=== PATIENT | female | born 1945 | race Hispanic/Latino ===

== ENCOUNTER 2018-06-06 04:20 | Emergency (ER) | payer MEDICARE, SELFPAY ==
[2018-06-06 05:01] LABS: Bilirubin Negative (Negative); Blood, Urine Trace (Negative); Clarity CLEAR (Clear); Glucose, Urine (Dipstick) 250 mg/dL (Negative); Leukocyte Small (Negative); Nitrite Negative (Negative); Protein, Urine (Dipstick) 100 mg/dL (Neg-Trace); Specific Gravity, Urine 1.009 (1.002-1.036); Urobilinogen 0.2 mg/dL (0.2-1.0); pH, Urine 7.5 (5.0-9.0)
[2018-06-06 05:04] LABS: Bacteria/HPF None Seen HPF (None Seen); Hyaline Casts/LPF 0-3 HYALINE CAST LPF (0-3 Hyaline); Pathc Cast-AUWi Flag 0.29 (0-2.49); RBC/HPF 0-3 HPF (0-3); Squamous Epithelial 0-3 HPF (0-3)
[2018-06-06 05:32] LABS: #Eosinphils 0.2 thou/uL (0.0-0.7); #Lymphocytes 1.4 thou/uL (1.20-3.40); #Monocytes 0.3 thou/uL (0.11-0.59); #Neutrophils 4.5 thou/uL (1.40-6.50); %Basophils 0.6 % (0.0-1.0); %Eosinophils 2.4 % (0.0-10.0); %Lymphocytes 22.1 % (21.0-51.0); %Monocytes 4.7 % (0.0-10.0); %Neutrophils 70.1 % (42.0-75.0); Hemoglobin 10.8 g/dL (12.0-16.0); Mean Corpuscular HGB CONC 33.7 g/dL (32.0-36.0); Mean Corpuscular Hemoglobin 29.1 pg (27.0-31.0); Mean Corpuscular Volume 86.4 fL (78.0-98.0); Platelet Count 230 thou/uL (130-400); RBC Distribution Width 11.8 % (11.5-14.5); Red Blood Cell (RBC) Count 3.72 mill/uL (4.20-5.40); White Blood Cell (WBC) Count 6.4 thou/uL (4.8-10.8)
[2018-06-06 05:52] LABS: ALT (SGPT) 17 U/L (8-55); AST (SGOT) 18 U/L (5-34); Albumin 4.2 g/dL (3.4-4.8); Alkaline Phosphatase 93 U/L (40-150); Anion Gap 14 mmol/L (10-20); BUN (Urea Nitrogen) 21 mg/dL (9.8-20.1); Bilirubin, Total 0.3 mg/dL (0.2-1.2); Calc. Creatinine Clearance 0 mL/min (70-130); Calcium 9.8 mg/dL (7.8-10.44); Carbon Dioxide 26 mmol/L (23-31); Chloride 102 mmol/L (98-107); Estimated GFR-MDRD 57; Globulin 3.6 g/dL (2.4-3.5); Glucose 222 mg/dL (83-110); Potassium 3.8 mmol/L (3.5-5.1); Protein, Total 7.8 g/dL (6.0-8.3); Sodium 138 mmol/L (136-145)
[2018-06-06] MEDS ORDERED: Meclizine HCl 25 MG TAB ONE (06:21)
[2018-06-06] MEDS ORDERED: hydrALAZINE 20 MG/ML VIAL ONE (06:50)
--- NOTE | 2018-06-06 08:59 | CT ---
PRELIMINARY REPORT/[facility]/EMERGENTY AFTER-HOURS PROCEDURE CT Head Without Contrast EXAM DATE/TIME: 06/06/2018 6:26 AM CLINICAL HISTORY: 73 years old, female; Signs and symptoms; Dizziness; Patient HX: 73f presents for evaluation of dizzi ness/lightheadedness, onset 1600 hours yesterday. Patient recalls checking her blood pressure later i n the evening at 2330 and noticed it was higher than normal. Patient then took her HTN meds and went to sleep. She was then woken from sleep with headache and room spinning when she opened her eyes. Sherrill shaw tried to relax, but her pressure climbed higher. TECHNIQUE: Axial computed tomography images of the head/brain without contrast. COMPARISON: No relevant prior studies available. FINDINGS: Brain: Normal. No hemorrhage. No significant white matter disease. No edema. Ventricles: Normal. No ventriculomegaly. Bones/joints: Normal. No acute fracture. Sinuses: Normal as visualized. No acute sinusitis. Mastoid air cells: Normal as visualized. No mastoid effusion. Soft tissues: Normal. IMPRESSION: No acute intracranial abnormality. Thank you for allowing us to participate in the care of your patient. Dictated and Authenticated by: Ace Estrella MD 06/06/2018 7:01 AM Central Time ([place] & [place]) FINAL REPORT EMERGENCY AFTER HOURS CT BRAIN: Date: 06/06/18 IMPRESSION: I agree with the preliminary interpretation given by Gloria. POS: [facility]
== END 2018-06-06 07:14 | disposition home or self-care (01) ==
LOC: ERS 04:20
DX: R42 Dizziness and giddiness (principal); I10 Essential (primary) hypertension; E11.9 Type 2 diabetes mellitus without complications; E78.00 Pure hypercholesterolemia, unspecified; F41.9 Anxiety disorder, unspecified; Z79.899 Other long term (current) drug therapy; Z79.4 Long term (current) use of insulin
CPT/HCPCS: 36415; 70450; 80053; 81003; 81015; 85025; 93005; 96374; J0360

== ENCOUNTER 2019-07-23 00:51 | Observation (INO) | payer MEDICARE ==
[2019-07-23] MEDS ORDERED: Aspirin Chewable 81 MG TAB ONE (01:17)
[2019-07-23 01:20] LABS: #Basophils 0.1 thou/uL (0.0-0.2); #Eosinphils 0.2 thou/uL (0.0-0.7); #Monocytes 0.4 thou/uL (0.11-0.59); #Neutrophils 4.2 thou/uL (1.40-6.50); %Basophils 1.4 % (0.0-1.0); %Eosinophils 2.9 % (0.0-10.0); %Lymphocytes 28.9 % (21.0-51.0); %Monocytes 6.2 % (0.0-10.0); %Neutrophils 60.6 % (42.0-75.0); Hemoglobin 10.3 g/dL (12.0-16.0); Mean Corpuscular HGB CONC 34.2 g/dL (32.0-36.0); Mean Corpuscular Hemoglobin 29.8 pg (27.0-31.0); Mean Corpuscular Volume 87.1 fL (78.0-98.0); Platelet Count 205 thou/uL (130-400); RBC Distribution Width 11.8 % (11.5-14.5); Red Blood Cell (RBC) Count 3.45 mill/uL (4.20-5.40); White Blood Cell (WBC) Count 6.9 thou/uL (4.8-10.8)
[2019-07-23 01:42] LABS: ALT (SGPT) 13 U/L (8-55); AST (SGOT) 17 U/L (5-34); Albumin 3.8 g/dL (3.4-4.8); Alkaline Phosphatase 84 U/L (40-110); Anion Gap 13 mmol/L (10-20); BUN (Urea Nitrogen) 23 mg/dL (9.8-20.1); Bilirubin, Total 0.2 mg/dL (0.2-1.2); Calc. Creatinine Clearance 0 mL/min (70-130); Calcium 9.1 mg/dL (7.8-10.44); Carbon Dioxide 24 mmol/L (23-31); Chloride 106 mmol/L (98-107); Estimated GFR-MDRD 57; Glucose 162 mg/dL (83-110); Lipase 55 U/L (8-78); Potassium 3.8 mmol/L (3.5-5.1); Protein, Total 6.8 g/dL (6.0-8.3); Sodium 139 mmol/L (136-145)
[2019-07-23] MEDS ORDERED: HumaLOG 300 UNITS/3 ML VIAL SC PRN ×3 (03:10→10:43)
[2019-07-23 03:39] LABS: #Eosinphils 0.1 thou/uL (0.0-0.7); #Lymphocytes 1.7 thou/uL (1.20-3.40); #Monocytes 0.4 thou/uL (0.11-0.59); #Neutrophils 4.3 thou/uL (1.40-6.50); %Basophils 0.4 % (0.0-1.0); %Eosinophils 1.9 % (0.0-10.0); %Lymphocytes 25.8 % (21.0-51.0); %Monocytes 5.5 % (0.0-10.0); %Neutrophils 66.4 % (42.0-75.0); Mean Corpuscular HGB CONC 34.8 g/dL (32.0-36.0); Mean Corpuscular Hemoglobin 30.3 pg (27.0-31.0); Mean Corpuscular Volume 87.1 fL (78.0-98.0); Mean Platelet Volume 8.2 fL (7.4-10.4); Platelet Count 195 thou/uL (130-400); RBC Distribution Width 11.7 % (11.5-14.5); Red Blood Cell (RBC) Count 3.29 mill/uL (4.20-5.40); White Blood Cell (WBC) Count 6.5 thou/uL (4.8-10.8)
[2019-07-23 03:59] LABS: Anion Gap 12 mmol/L (10-20); BUN (Urea Nitrogen) 22 mg/dL (9.8-20.1); Calc. Creatinine Clearance 0 mL/min (70-130); Carbon Dioxide 25 mmol/L (23-31); Chloride 106 mmol/L (98-107); Estimated GFR-MDRD 58; Glucose 180 mg/dL (83-110); Potassium 4.1 mmol/L (3.5-5.1); Sodium 139 mmol/L (136-145)
[2019-07-23] MEDS ORDERED: Ondansetron PF 4 MG/2 ML Vial IVP PRN (04:43)
[2019-07-23] MEDS ORDERED: Acetaminophen 325 MG TAB PO PRN (04:43)
[2019-07-23] MEDS ORDERED: Ondansetron ODT 4 MG TAB SL PRN (04:43)
[2019-07-23 04:44] LABS: Troponin I 0.021 ng/mL (< 0.028)
[2019-07-23 05:15] VITALS: BMI 24.5
[2019-07-23 07:51] LABS: Troponin I 0.031 ng/mL (< 0.028)
[2019-07-23] MEDS ORDERED: cloNIDine 0.1 MG TAB PO PRN ×2 (07:53→10:39)
--- NOTE | 2019-07-23 08:31 | RAD ---
PORTABLE CHEST 1 VIEW: DATE: 07/23/2019. TIME: 12:46 AM. HISTORY: Chest pain. FINDINGS: Comparison is made with the exam of 01/01/2012. The heart size is normal. The aorta is tortuous. Th ere is evidence of old granulomatous disease. No focal areas of consolidation, pneumothoraces, or pl eural effusions are seen. There are degenerative changes in the spine. IMPRESSION: No acute process. POS: [facility]
[2019-07-23] MEDS ORDERED: Hydrochlorothiazide 25 MG TAB PO SCH (09:00)
[2019-07-23] MEDS ORDERED: Ondansetron ODT 4 MG TAB PO PRN (10:40)
[2019-07-23] MEDS ORDERED: Dextrose 5% in Water 1,000 ML IV PRN (10:43)
[2019-07-23] MEDS ORDERED: Dextrose 50% Abboject 50 ML SYRINGE SLOW IVP PRN (10:43)
[2019-07-23] MEDS ORDERED: ADENOSINE 60 MG/20 ML VIAL ONE (13:07)
[2019-07-23 16:41] VITALS: BP 142/65; TEMP 98.4
--- NOTE | 2019-07-23 16:42 | NM ---
EXAM: CARDIAC SPECT HISTORY: Chest pain, hypertension, diabetes, dyslipidemia TECHNIQUE: A myocardial perfusion scan was performed using the single isotope 1 day protocol with adela hnetium 99m sestamibi. [11 mCi] was injected intravenously for the rest exam followed by 28 mCifor the stress study. Pharmacologic stress with adenosine was monitored and interpreted by Dr. Bucio FINDINGS: Homogeneous tracer distribution is seen in the myocardial segments on stress and rest image s without fixed or reversible defects. Gated SPECT LVEF: 78% Wall motion exam: Normal IMPRESSION: Normal myocardial perfusion scan
[2019-07-23] MEDS ORDERED: Lisinopril 20 MG TAB PO SCH (21:00)
[2019-07-23] MEDS ORDERED: Simvastatin 5 MG TAB PO SCH (21:00)
[2019-07-23] MEDS ORDERED: INSULIN DETEMIR 7 UNIT SQ SCH (21:00)
[2019-07-23] MEDS ORDERED: Insulin Glargine 7 UNITS in Pre-Filled Syringe 1 EACH SC SCH (21:00)
--- NOTE | 2019-07-23 22:35 | HP ---
PRESENTING COMPLAINT: Chest pain. HISTORY OF PRESENT ILLNESS: The patient with a past medical history of diabetes mellitus, hypertension, hyperlipidemia, presented with chest pain and high blood pressure readings. As per the patient at 11:30 p.m. last night, she check her blood pressure, it was high, also started feeling retrosternal chest pain, off and on, lasting for a few seconds with the nitro did help with the pain and the patient's pain resolved. Currently, the patient denies any chest pain or shortness of breath. As per the patient, the pain was also feeling in her left shoulder area. Denies any shortness of breath or palpitation. Complains of mild sweating. Denies headache or dizziness. Denies nausea, vomiting, diarrhea, or constipation. The patient had minimal positive troponin from baseline 0.010, 0.021, 0.031, being admitted for further evaluation. SYSTEMIC REVIEW: As mentioned above in the HPI. All other systems are negative. PAST MEDICAL HISTORY: As mentioned above in the HPI. PAST SURGICAL HISTORY: History of left mastectomy for breast cancer. History of hysterectomy. SOCIAL HISTORY: Denies smoking, alcohol abuse, drug abuse. FAMILY HISTORY: Coronary artery disease and cancer. ALLERGIES: NKDA. MEDICATIONS: 1. Insulin glargine. 2. Metoprolol. 3. Hydrochlorothiazide. 4. Metformin. 5. Clonidine. 6. Glimepiride. 7. Pravastatin. 8. Lisinopril. PHYSICAL EXAMINATION: VITAL SIGNS: Blood pressure 161/70, temperature 98.3, pulse 68, respirations 16, oxygen saturation 96%. GENERAL: The patient is lying in bed comfortably, in no distress. HEENT: Conjunctivae normal. Oral mucosa moist. NECK: Supple. No JVD. No lymphadenopathy. CHEST: Normal vesicular breathing. No rhonchi. No wheezing. HEART: Heart sounds normal. No murmur. No gallop. No rub. ABDOMEN: Soft, benign, nontender. No visceromegaly. EXTREMITIES: Negative edema of feet. No rash. No cyanosis. DIAGNOSTIC DATA: EKG normal sinus rhythm, nonspecific ST-T changes. LABORATORY DATA: BMP unremarkable, except blood glucose 180. Troponin 0.010, 0.021, 0.031. CBC unremarkable, except hemoglobin 10.3. Chest x-ray without acute findings. IMPRESSION: 1. Recurrent chest pain, atypical in character. Troponins x3 negative. Borderline positive third troponin 0.031. Pending stress test. Continue aspirin and statins. Currently, denies any chest pain. 2. Diabetes mellitus. Continue sliding scale insulin. Continue to monitor blood sugar. 3. Hypertension. Continue blood pressure medication. 4. Deep venous thrombosis and gastrointestinal prophylaxis. Plan discussed with the patient's and nursing staff. Job ID: [id number]
[2019-07-24] MEDS ORDERED: Enoxaparin Sodium 40 MG/0.4 ML SYRINGE SC SCH (09:00)
[2019-07-24] MEDS ORDERED: Hydrochlorothiazide 25 MG TAB PO SCH (09:00)
[2019-07-24] MEDS ORDERED: Lisinopril 20 MG TAB PO SCH (21:00)
--- NOTE | 2019-07-26 14:46 | DIS ---
DATE OF ADMISSION: 07/23/2019 DATE OF DISCHARGE: 07/23/2019 DISCHARGE DIAGNOSES: 1. Chest pain. Myocardial infarction ruled out. Stress test negative. 2. Uncontrolled hypertension, present on admission. 3. Diabetes mellitus. 4. Hypertension. 5. Hyperlipidemia. 6. Chronic anemia. PHYSICAL EXAMINATION: VITALS: Blood pressure 142/65, temperature 98.4, pulse 72, respirations 16, oxygen saturation 98%. GENERAL: The patient is lying in bed comfortably, in no distress. HEENT: Conjunctivae normal. Oral mucosa moist. NECK: Supple. No JVD. CHEST: Normal vesicular breathing. HEART: Sounds normal. ABDOMEN: Soft. EXTREMITIES: Negative edema of feet. No rash. No cyanosis. LABORATORY DATA: BMP unremarkable except hemoglobin 10.0. BMP unremarkable except BUN 22, blood glucose 180. Troponin 0.021, 0.031, 0.010. Nuclear stress test negative. EKG normal sinus rhythm. HOSPITAL SUMMARY: Patient, Gloria Lombardi presented with recurrent chest pain, also having high blood pressure at home. The patient's EKG was negative. The patient admitted for rule out ACS. The patient's troponin mildly went up to 0.021, 0.031, 0.010. The patient performed a nuclear stress test which was negative. The patient denies any chest pain, it resolved. Blood pressure has improved to 142/65, being discharged home, advised to follow up Cardiology if the patient has persistent recurrent chest pain. The patient advised to continue home medications and currently being discharged in a stable condition. Job ID: [id number]
== END 2019-07-23 18:59 | disposition home or self-care (01) ==
LOC: ERS 00:51 → 2SW 02:40
PROVIDERS: ADMIT Internal Medicine Sleep Medicine; ATTEND Internal Medicine
DX: R07.89 Other chest pain (principal); I10 Essential (primary) hypertension; E11.9 Type 2 diabetes mellitus without complications; E78.5 Hyperlipidemia, unspecified; D64.9 Anemia, unspecified; Z79.4 Long term (current) use of insulin; Z79.899 Other long term (current) drug therapy
CPT/HCPCS: 71045; 78452; 80048; 80053; 82962; 83690; 84484 ×2; 85025 ×2; 93005; 93017; 99285; A9500; G0378 ×2; 36415; 36416; J0153; J1815